=== PATIENT | male | born 1935 | race Caucasian/White ===

== ENCOUNTER 2022-01-11 00:12 | Inpatient (IN) ==
[2022-01-11] MEDS ORDERED: Ondansetron 4 mg VIAL 2 MG/ML 2 ml VIAL IV PRN (00:25)
[2022-01-11] MEDS: Lactated Ringers 1000 ml BAG 1,000 ML IV SCH ×2 (00:43→13:12)
[2022-01-11] MEDS ORDERED: LORazepam 2 mg VIAL 1 ml IV PUSH ONE (01:02)
[2022-01-11] MEDS ORDERED: Lorazepam PYXIS KEY PRN (01:02)
[2022-01-11 01:34] LABS: Activated Partial Thrombo Time 28.6 seconds (26.0-38.0); INR 1.09 (0.86-1.15)
[2022-01-11] MEDS ORDERED: Haloperidol 5 mg/ml SDV IV/IM 5 MG/ML AMP ONE (02:11)
[2022-01-11] MEDS: Dexamethasone IV 4 MG/ML VIAL 1 ml VIAL IV SLOW PU SCH ×2 (02:39→08:36)
[2022-01-11] MEDS: cefTRIAXone 2 GM ADDV.VIAL 2 GM in NS 0.9% 100 ml BAG 100 ML IV SCH ×2 (02:40→13:11)
[2022-01-11 02:58] LABS: ABS Monocytes 0.6 10^3/ul (0-0.8); ABS Neutrophils 9.9 10^3/ul (1.5-7.7); Eosinophil % 0.1 %; Hematocrit 33 % (42-52); Lymphocyte % 8.3 %; Mean Corpuscular HGB Conc 33 g/dL (31-36); Mean Corpuscular Hemoglobin 30 pg (27-31); Mean Corpuscular Volume 90 fL (80-94); Mean Platelet Volume 8.3 fL (7.4-10.4); Platelet Count 208 10^3/uL (150-450); Red Cell Distribution Width 14 % (10-15); White Blood Count 11.6 10^3/uL (3.5-10.8)
[2022-01-11] MEDS ORDERED: Haloperidol 5 mg/ml SDV IV/IM 5 MG/ML AMP IV SLOW PU ONE (03:00)
[2022-01-11] MEDS ORDERED: Acyclovir IV 850 MG in NS 0.9% 250 ml 250 ML IVPB SCH (03:00)
[2022-01-11 03:34] LABS: Albumin 3.6 g/dL (3.2-5.2); Calcium 9.1 mg/dL (8.6-10.3); Potassium 4.4 mmol/L (3.5-5.0); Total Bilirubin 0.5 mg/dL (0.2-1.0)
[2022-01-11 03:40] LABS: Albumin/Globulin Ratio 1.9 (1-3); Globulin 1.9 g/dL (2-4); Total Protein 5.5 g/dL (6.4-8.9); eGFR CKD-EPI 31.4 (>60)
[2022-01-11] MEDS: NS 0.9% IVPB SCH ×2 (04:25→16:33)
[2022-01-11] MEDS: ACYCLOVIR IVPB SCH ×2 (04:25→16:33)
[2022-01-11] MEDS ORDERED: Insulin GLARGINE 100 un/ml 10 ml VIAL SUBCUT SCH (09:00)
[2022-01-11 11:32] LABS: Body Fluid Source Cerebral Spinal
[2022-01-11 11:47] LABS: CSF Glucose 121 mg/dL (40-70)
[2022-01-11 12:42] LABS: Body Fluid Appearance Clear; Body Fluid Color Colorless; CSF Tube # 4
[2022-01-11 12:50] LABS: Body Fluid WBC 2 /mcL
[2022-01-11] MEDS ORDERED: Ampicillin ADVAN 2 GM in NS 0.9% 100 ml BAG 100 ML IVPB SCH (13:00)
[2022-01-11 14:38] LABS: Body Fluid Mono 22 %; Body Fluid Total Cells Counted 92
[2022-01-11] MEDS ORDERED: Dextrose 50% Syringe 50 ml 25 GM/50 ML SYRINGE IV PUSH PRN (17:44)
[2022-01-11 18:05] LABS: Glucose Confirmatory 429 mg/dL (70-100)
[2022-01-12] MEDS: cefTRIAXone 2 GM ADDV.VIAL 2 GM in NS 0.9% 100 ml BAG 100 ML IV SCH (03:28)
[2022-01-12] MEDS: ACYCLOVIR IVPB SCH ×2 (04:43→15:31)
[2022-01-12] MEDS: NS 0.9% IVPB SCH ×2 (04:43→15:31)
[2022-01-12 05:51] LABS: ABS Lymphocytes 0.7 10^3/ul (1.0-4.8); ABS Monocytes 0.6 10^3/ul (0-0.8); ABS Neutrophils 13.5 10^3/ul (1.5-7.7); Hematocrit 32 % (42-52); Hemoglobin 10.9 g/dL (14.0-18.0); Lymphocyte % 4.8 %; Mean Corpuscular HGB Conc 35 g/dL (31-36); Mean Corpuscular Hemoglobin 31 pg (27-31); Mean Corpuscular Volume 89 fL (80-94); Mean Platelet Volume 8.6 fL (7.4-10.4); Nucleated Red Blood Cells % 0.1; Platelet Count 203 10^3/uL (150-450); Red Blood Count 3.57 10^6 /uL (4.18-5.48); Red Cell Distribution Width 14 % (10-15); White Blood Count 14.9 10^3/uL (3.5-10.8)
[2022-01-12 06:14] LABS: C Reactive Protein 68.03 mg/L (<8.01); Calcium 8.8 mg/dL (8.6-10.3); Potassium 4.4 mmol/L (3.5-5.0); eGFR CKD-EPI 25.2 (>60)
[2022-01-12] MEDS: Insulin GLARGINE 100 un/ml 10 ml VIAL SUBCUT SCH (08:35)
[2022-01-12] MEDS: Heparin 5000 UNITS/ML 1 mL VIAL SUBCUT SCH (20:38)
[2022-01-12] MEDS ORDERED: Calcium Carb (TUMS) 500 mg CHEW TAB PO PRN (22:37)
[2022-01-12] MEDS ORDERED: Al Hydrox/Mg Hydrox/Simet LIQ 30 ML UDC PO ONE (22:37)
[2022-01-13 00:32] LABS: HSV 1 PCR, CSF Negative (Negative); HSV 2 PCR, CSF Negative (Negative)
[2022-01-13] MEDS ORDERED: cefTRIAXone 1 gm/50 mL D5W 1 GM/50 ML BAG IV SCH (03:00)
[2022-01-13] MEDS: ACYCLOVIR IVPB SCH (04:46)
[2022-01-13] MEDS: NS 0.9% IVPB SCH (04:46)
[2022-01-13] MEDS: Heparin 5000 UNITS/ML 1 mL VIAL SUBCUT SCH ×3 (05:39→21:16)
[2022-01-13 06:52] LABS: ABS Lymphocytes 1.5 10^3/ul (1.0-4.8); ABS Monocytes 0.8 10^3/ul (0-0.8); ABS Neutrophils 8.9 10^3/ul (1.5-7.7); Eosinophil % 0.4 %; Hematocrit 32 % (42-52); Lymphocyte % 13.2 %; Mean Corpuscular HGB Conc 34 g/dL (31-36); Mean Corpuscular Hemoglobin 31 pg (27-31); Mean Corpuscular Volume 90 fL (80-94); Mean Platelet Volume 8.8 fL (7.4-10.4); Platelet Count 207 10^3/uL (150-450); Red Blood Count 3.61 10^6 /uL (4.18-5.48); Red Cell Distribution Width 14 % (10-15); White Blood Count 11.2 10^3/uL (3.5-10.8)
[2022-01-13 07:05] LABS: CO2 Carbon Dioxide 21 mmol/L (22-32); Calcium 8.9 mg/dL (8.6-10.3); Chloride 106 mmol/L (101-111); Sodium 136 mmol/L (135-145)
[2022-01-13 07:09] LABS: Anion Gap 9 mmol/L (2-11)
[2022-01-13 07:11] LABS: Blood Urea Nitrogen 59 mg/dL (6-24); Glucose 140 mg/dL (70-100); eGFR CKD-EPI 28.9 (>60)
[2022-01-13] MEDS: Insulin GLARGINE 100 un/ml 10 ml VIAL SUBCUT SCH (09:20)
[2022-01-13 12:51] LABS: Herpes Simplex Virus I IgG AB Negative (Negative); Herpes Simplex Virus II IgG AB Negative (Negative)
[2022-01-13 14:41] LABS: B. garinii/B. afzellii PCR Negative (Negative); Lyme Disease Source CSF
[2022-01-13 16:17] LABS: Cytomegalovirus IgG Antibody Negative (Negative); EBV, IgG Ab to Early Antigen Positive (Negative)
[2022-01-14] MEDS ORDERED: Al Hydrox/Mg Hydrox/Simet LIQ 30 ML UDC PO PRN (00:32)
[2022-01-14] MEDS: Heparin 5000 UNITS/ML 1 mL VIAL SUBCUT SCH ×3 (05:27→23:35)
[2022-01-14 06:10] LABS: ABS Eosinophils 0.3 10^3/ul (0-0.6); ABS Lymphocytes 2.1 10^3/ul (1.0-4.8); ABS Monocytes 0.9 10^3/ul (0-0.8); Eosinophil % 3.6 %; Hematocrit 33 % (42-52); Hemoglobin 11.4 g/dL (14.0-18.0); Lymphocyte % 24.9 %; Mean Corpuscular HGB Conc 35 g/dL (31-36); Mean Corpuscular Hemoglobin 31 pg (27-31); Mean Corpuscular Volume 88 fL (80-94); Mean Platelet Volume 8.8 fL (7.4-10.4); Platelet Count 226 10^3/uL (150-450); Red Blood Count 3.75 10^6 /uL (4.18-5.48); Red Cell Distribution Width 14 % (10-15); White Blood Count 8.3 10^3/uL (3.5-10.8)
[2022-01-14 06:45] LABS: Potassium 4.5 mmol/L (3.5-5.0); eGFR CKD-EPI 37.4 (>60)
[2022-01-14] MEDS: Aspirin EC 81 mg TAB.EC (enteric coated) PO SCH (10:12)
[2022-01-14] MEDS: Insulin GLARGINE 100 un/ml 10 ml VIAL SUBCUT SCH (10:26)
[2022-01-15 06:13] LABS: ABS Eosinophils 0.4 10^3/ul (0-0.6); ABS Lymphocytes 1.8 10^3/ul (1.0-4.8); ABS Monocytes 0.8 10^3/ul (0-0.8); ABS Neutrophils 4.7 10^3/ul (1.5-7.7); Eosinophil % 5.3 %; Hematocrit 37 % (42-52); Hemoglobin 12.7 g/dL (14.0-18.0); Lymphocyte % 23.2 %; Mean Corpuscular HGB Conc 35 g/dL (31-36); Mean Corpuscular Hemoglobin 31 pg (27-31); Mean Corpuscular Volume 89 fL (80-94); Mean Platelet Volume 8.7 fL (7.4-10.4); Platelet Count 237 10^3/uL (150-450); Red Blood Count 4.11 10^6 /uL (4.18-5.48); Red Cell Distribution Width 14 % (10-15); White Blood Count 7.7 10^3/uL (3.5-10.8)
[2022-01-15 06:51] LABS: Calcium 9.4 mg/dL (8.6-10.3); Potassium 4.5 mmol/L (3.5-5.0); eGFR CKD-EPI 37.2 (>60)
[2022-01-15] MEDS: Heparin 5000 UNITS/ML 1 mL VIAL SUBCUT SCH ×2 (07:11→13:04)
[2022-01-15] MEDS: Insulin GLARGINE 100 un/ml 10 ml VIAL SUBCUT SCH (09:56)
[2022-01-15] MEDS: Aspirin EC 81 mg TAB.EC (enteric coated) PO SCH (09:57)
[2022-01-15 17:15] VITALS: BP 168/63
== END 2022-01-15 16:38 | disposition home health service (06) | DRG 872 ==
LOC: MEDTELE 00:12 → INTOOBSV 00:12 → OBSVTOIN 00:25 → SUATTDRO 00:25
PROVIDERS: ADMIT Internal Medicine; ATTEND Internal Medicine

== ENCOUNTER 2022-03-24 12:53 | Observation (INO) ==
[2022-03-24] MEDS ORDERED: ceFAZolin 2 GM in NS PREMIX 2 GM/100 ML BAG IVPB ONE (17:50)
[2022-03-24 20:01] LABS: TSH Ultra Thyroid Stim Horm 3.52 mcIU/mL (0.34-5.60)
[2022-03-24 20:03] LABS: Free T4 1.29 ng/dL (0.61-1.12)
[2022-03-24] MEDS: NS 0.9% 1000 ml BAG 1,000 ML IV SCH (20:53)
[2022-03-24] MEDS ORDERED: Dextrose 50% Syringe 50 ml 25 GM/50 ML SYRINGE IV PUSH PRN (22:52)
[2022-03-25 05:48] LABS: ABS Basophils 0.1 10^3/ul (0-0.2); ABS Eosinophils 0.4 10^3/ul (0-0.6); ABS Lymphocytes 1.6 10^3/ul (1.0-4.8); ABS Monocytes 1.1 10^3/ul (0-0.8); ABS Neutrophils 6.2 10^3/ul (1.5-7.7); Hematocrit 32 % (42-52); Hemoglobin 10.8 g/dL (14.0-18.0); Lymphocyte % 17.5 %; Mean Corpuscular HGB Conc 34 g/dL (31-36); Mean Corpuscular Hemoglobin 30 pg (27-31); Mean Corpuscular Volume 90 fL (80-94); Mean Platelet Volume 8.5 fL (7.4-10.4); Platelet Count 229 10^3/uL (150-450); Red Blood Count 3.56 10^6 /uL (4.18-5.48); Red Cell Distribution Width 14 % (10-15); White Blood Count 9.4 10^3/uL (3.5-10.8)
[2022-03-25 06:19] LABS: Calcium 9.3 mg/dL (8.6-10.3); eGFR CKD-EPI 29.3 (>60)
[2022-03-25 06:21] LABS: Potassium 5.2 mmol/L (3.5-5.0)
[2022-03-25] MEDS ORDERED: ceFAZolin 2 GM PREMIX 2 GM/50 ML BAG IVPB ONE (07:00)
[2022-03-25] MEDS: NS 0.9% 1000 ml BAG 1,000 ML IV SCH (07:11)
[2022-03-25] MEDS ORDERED: Insulin GLARGINE 100 un/ml 10 ml VIAL SUBCUT SCH ×2 (09:00)
[2022-03-25] MEDS: Calcium Carb (TUMS) 500 mg CHEW TAB PO SCH ×2 (09:06→21:03)
[2022-03-25] MEDS: CMCS: Lovastatin 10 mg TAB (NF) PO SCH (09:08)
[2022-03-25] MEDS ORDERED: Iohexol 300 (CONTRAST) 10 ML SDV ONE (11:11)
[2022-03-25] MEDS ORDERED: Midazolam 5 mg/5 ml VIAL 1 mg/ml 5 ml VIAL (5 mg) ONE (11:11)
[2022-03-25] MEDS ORDERED: fentaNYL 100 mcg/2 ml 50 MCG/ML VIAL ONE (11:11)
[2022-03-25] MEDS ORDERED: Lidocaine 1% MPF 5 ML VIAL ONE ×2 (11:37→12:27)
[2022-03-25] MEDS ORDERED: Dextrose 50% Syringe 50 ml 25 GM/50 ML SYRINGE IV PUSH PRN (14:03)
[2022-03-25] MEDS: ceFAZolin 1 GM ADVAN 1 GM in NS 0.9% 50 ML 50 ML IVPB SCH (17:08)
[2022-03-26] MEDS: ceFAZolin 1 GM ADVAN 1 GM in NS 0.9% 50 ML 50 ML IVPB SCH ×2 (02:17→08:39)
[2022-03-26 08:33] LABS: ABS Basophils 0.1 10^3/ul (0-0.2); ABS Eosinophils 0.2 10^3/ul (0-0.6); ABS Lymphocytes 1.9 10^3/ul (1.0-4.8); ABS Monocytes 1.2 10^3/ul (0-0.8); ABS Neutrophils 7.8 10^3/ul (1.5-7.7); Eosinophil % 1.7 %; Hematocrit 34 % (42-52); Hemoglobin 11.3 g/dL (14.0-18.0); Lymphocyte % 16.8 %; Mean Corpuscular HGB Conc 33 g/dL (31-36); Mean Corpuscular Hemoglobin 30 pg (27-31); Mean Corpuscular Volume 91 fL (80-94); Mean Platelet Volume 8.2 fL (7.4-10.4); Platelet Count 214 10^3/uL (150-450); Red Blood Count 3.73 10^6 /uL (4.18-5.48); Red Cell Distribution Width 15 % (10-15); White Blood Count 11.2 10^3/uL (3.5-10.8)
[2022-03-26] MEDS: Calcium Carb (TUMS) 500 mg CHEW TAB PO SCH (08:34)
[2022-03-26] MEDS ORDERED: Metoprolol Tartrate 5 mg VIAL 5 ml VIAL (1 mg/ml) IV ONE (08:47)
[2022-03-26] MEDS ORDERED: Insulin GLARGINE 100 un/ml 10 ml VIAL SUBCUT SCH ×2 (09:00)
[2022-03-26] MEDS: CMCS: Lovastatin 10 mg TAB (NF) PO SCH (09:11)
[2022-03-26 09:30] LABS: Calcium 9.8 mg/dL (8.6-10.3); Potassium 4.7 mmol/L (3.5-5.0)
[2022-03-26 09:36] LABS: Ferritin 315.3 ng/mL (24-336)
[2022-03-26 11:09] LABS: Magnesium 1.8 mg/dL (1.9-2.7)
[2022-03-26] MEDS ORDERED: Magnesium Sulfate 2 gm BAG 2 GM/50 ML BAG IVPB ONE (12:56)
[2022-03-26 17:25] VITALS: BP 163/65
[2022-03-29 16:13] LABS: Renin 12 ng/mL/h
== END 2022-03-26 18:10 | disposition home or self-care (01) ==
LOC: MEDTELE → INTOOBSV 15:53 → OBSVTOIN 15:53
PROVIDERS: ADMIT Specialist; ATTEND Internal Medicine Cardiovascular Disease